=== PATIENT | female | born 1950 | race Caucasian/White ===

== ENCOUNTER 2024-04-07 08:48 | Outpatient (CLI) | payer MEDICARE, OTHER | END 2024-04-07 08:49 | disposition home or self-care (01) | LOC: RAD 08:48 | PROVIDERS: ATTEND Internal Medicine Critical Care Medicine | DX: R06.00 Dyspnea, unspecified (principal); I51.7 Cardiomegaly; J98.4 Other disorders of lung | CPT/HCPCS: 71046 ==

== ENCOUNTER 2024-05-23 06:43 | Inpatient (IN) | payer MEDICARE ==
[2024-05-23 08:32] LABS: #Basophils 0.05 10x3/uL (0.0-0.2); %Basophils 0.9 % (0.0-1.0); %Eosinophils 2.2 % (0.0-10.0); %Monocytes 10.5 % (0.0-10.0); Hematocrit 41.5 % (36.0-47.0); Hemoglobin 12.2 g/dL (12.0-16.0); Mean Corpuscular HGB CONC 29.4 g/dL (32.0-36.0); Mean Corpuscular Hemoglobin 23.8 pg (27.0-31.0); Mean Corpuscular Volume 81.1 fL (78.0-98.0); Mean Platelet Volume 10.2 fL (7.4-10.4); Platelet Count 323 10x3/uL (130-400); RBC Distribution Width 17.2 % (11.5-14.5); Red Blood Cell (RBC) Count 5.12 mill/uL (4.20-5.40)
[2024-05-23 08:37] LABS: Anion Gap 13 mmol/L (10-20); BUN (Urea Nitrogen) 14 mg/dL (9.8-20.1); Calc. Creatinine Clearance 0 mL/min (70-130); Calcium 8.6 mg/dL (7.8-10.44); Carbon Dioxide 23 mmol/L (23-31); Chloride 106 mmol/L (98-107); Estimated GFR 83; Glucose 125 mg/dL (83-110); Potassium 4.1 mmol/L (3.5-5.1); Sodium 138 mmol/L (136-145)
[2024-05-23 08:43] LABS: Troponin I 0.024 ng/mL (< 0.028)
[2024-05-23] MEDS ORDERED: Acetaminophen 325 MG TAB PO PRN (10:15)
[2024-05-23] MEDS ORDERED: Ondansetron PF 4 MG/2 ML Vial IVP PRN (10:15)
[2024-05-23] MEDS ORDERED: Ondansetron ODT 4 MG TAB SL PRN (10:15)
[2024-05-23] MEDS ORDERED: Nitroglycerin 0.4 MG TAB (25 Tab Bottle) SL PRN (10:18)
[2024-05-23 11:28] LABS: Cardiac Risk 3.2 (Less than 4.5)
[2024-05-23 11:33] LABS: Troponin I 0.024 ng/mL (< 0.028)
[2024-05-23] MEDS ORDERED: Sacubitril 49 MG/Valsartan 51 MG TABLET ONE (12:05)
[2024-05-23] MEDS ORDERED: Aspirin 325 mg Enteric Coated Tablet ONE (12:05)
[2024-05-23] MEDS: Aspirin 81 mg Enteric Coated Tablet PO SCH (12:08)
[2024-05-23] MEDS: Sacubitril 24MG/Valsartan 26 MG TAB PO SCH ×2 (13:21→20:16)
[2024-05-23] MEDS: Levothyroxine Sodium 25 MCG TAB PO SCH (20:16)
[2024-05-23] MEDS: Atorvastatin Calcium 20 MG TAB PO SCH (20:16)
[2024-05-23] MEDS: Amiodarone 200 MG TAB PO SCH (20:16)
[2024-05-23] MEDS: Enoxaparin 100 MG (1 mL) SYRINGE SC SCH (20:17)
[2024-05-23] MEDS: Dapagliflozin Propanediol 10 MG TAB PO SCH (20:50)
[2024-05-24 05:08] LABS: #Basophils 0.07 10x3/uL (0.0-0.2); %Eosinophils 2.5 % (0.0-10.0); %Lymphocytes 30.6 % (21.0-51.0); %Monocytes 10.9 % (0.0-10.0); %Neutrophils 54.7 % (42.0-75.0); Hematocrit 39.5 % (36.0-47.0); Hemoglobin 11.9 g/dL (12.0-16.0); Mean Corpuscular HGB CONC 30.1 g/dL (32.0-36.0); Mean Corpuscular Hemoglobin 24.2 pg (27.0-31.0); Mean Corpuscular Volume 80.3 fL (78.0-98.0); Mean Platelet Volume 10.2 fL (7.4-10.4); Platelet Count 312 10x3/uL (130-400); RBC Distribution Width 17.5 % (11.5-14.5); Red Blood Cell (RBC) Count 4.92 mill/uL (4.20-5.40)
[2024-05-24 05:38] LABS: Anion Gap 12 mmol/L (10-20); BUN (Urea Nitrogen) 11 mg/dL (9.8-20.1); Calc. Creatinine Clearance 0 mL/min (70-130); Calcium 8.2 mg/dL (7.8-10.44); Carbon Dioxide 24 mmol/L (23-31); Chloride 108 mmol/L (98-107); Estimated GFR 69; Glucose 107 mg/dL (83-110); Potassium 4.1 mmol/L (3.5-5.1); Sodium 140 mmol/L (136-145)
[2024-05-24] MEDS: Aspirin Chewable 81 MG TAB PO SCH (08:44)
[2024-05-26] MEDS: Acetaminophen 325 MG TAB PO PRN (05:41)
[2024-05-26] MEDS: Cephalexin 250 MG CAP PO SCH (15:28)
[2024-05-26] MEDS ORDERED: Communication Order-Pharmacy FS SCH (19:00)
[2024-05-27] MEDS: Sodium Chloride 0.9% 500 ML IV SCH (02:00)
[2024-05-27] MEDS ORDERED: fentaNYL 50 mcg/mL 1 mL Vial ONE (07:44)
[2024-05-27] MEDS ORDERED: Nitroglycerin 50 MG/250 ML BOT 0 ML ONE (07:45)
[2024-05-27] MEDS ORDERED: Midazolam HCl 2 mg/2 ml Vial ONE (07:45)
[2024-05-27] MEDS ORDERED: Heparin 10,000 UNITS/ 10 ML VIAL ONE (07:45)
[2024-05-27] MEDS ORDERED: Sodium Chloride 0.9% 200 ML IV PRN (08:55)
[2024-05-27] MEDS ORDERED: Acetaminophen/Codeine 30-300mg Tablet PO PRN (08:55)
[2024-05-27] MEDS: Sodium Chloride 0.9% 250 ML IV SCH (09:28)
[2024-05-27] MEDS ORDERED: Iopamidol 370 76% 100 ML VIAL ONE (11:01)
[2024-05-28 07:12] LABS: #Basophils 0.06 10x3/uL (0.0-0.2); %Eosinophils 2.7 % (0.0-10.0); %Lymphocytes 28.8 % (21.0-51.0); %Monocytes 11.9 % (0.0-10.0); %Neutrophils 55.3 % (42.0-75.0); Hematocrit 45.1 % (36.0-47.0); Hemoglobin 13.5 g/dL (12.0-16.0); Mean Corpuscular HGB CONC 29.9 g/dL (32.0-36.0); Mean Corpuscular Hemoglobin 24.2 pg (27.0-31.0); Mean Corpuscular Volume 80.8 fL (78.0-98.0); Mean Platelet Volume 10.7 fL (7.4-10.4); Platelet Count 311 10x3/uL (130-400); Red Blood Cell (RBC) Count 5.58 mill/uL (4.20-5.40)
[2024-05-28 07:27] LABS: Anion Gap 14 mmol/L (10-20); BUN (Urea Nitrogen) 14 mg/dL (9.8-20.1); Calc. Creatinine Clearance 80 mL/min (70-130); Calcium 8.8 mg/dL (7.8-10.44); Carbon Dioxide 22 mmol/L (23-31); Chloride 107 mmol/L (98-107); Estimated GFR 75; Glucose 107 mg/dL (83-110); Potassium 4.2 mmol/L (3.5-5.1); Sodium 139 mmol/L (136-145)
[2024-05-28 11:50] VITALS: BP 131/59; TEMP 98.3
[2024-05-29] MEDS ORDERED: Spironolactone 25 MG TAB PO SCH (08:00)
== END 2024-05-28 14:02 | disposition home or self-care (01) | DRG 287 ==
LOC: ERS 06:43 → ERHOLD 09:56 → OBSVTOIN 10:16 → OBS 13:09
PROVIDERS: ADMIT Family Medicine; ATTEND Internal Medicine
PROC: 4A023N7 Measurement of Cardiac Sampling and Pressure, Left Heart, Percutaneous Approach (ICD-10-PCS; principal; 2024-05-27)
PROC: B2111ZZ Fluoroscopy of Multiple Coronary Arteries using Low Osmolar Contrast (ICD-10-PCS; 2024-05-27)
PROC: B2151ZZ Fluoroscopy of Left Heart using Low Osmolar Contrast (ICD-10-PCS; 2024-05-27)
DX: I42.9 Cardiomyopathy, unspecified (principal); I50.22 Chronic systolic (congestive) heart failure; R07.89 Other chest pain; I48.0 Paroxysmal atrial fibrillation; Z79.82 Long term (current) use of aspirin; E03.9 Hypothyroidism, unspecified; Z98.890 Other specified postprocedural states; E11.9 Type 2 diabetes mellitus without complications; Z98.49 Cataract extraction status, unspecified eye; I11.0 Hypertensive heart disease with heart failure; E78.5 Hyperlipidemia, unspecified
CPT/HCPCS: 36415; 71045; 80048; 80061; 83880; 84443; 84484; 85025; 93306; 93458; 94760; 97139; 99152; C1769; C1887; J1644; J1650; J2250; J3010; Q9967

== ENCOUNTER 2024-06-13 18:48 | Inpatient (IN) | payer MEDICARE ==
[~2024-06-13 18:48] MED LIST: Iopamidol-370 76% 500 ML MDV (1 ML CHARGE) ONE
[2024-06-13] MEDS ORDERED: Ondansetron PF 4 MG/2 ML Vial ONE (19:38)
[2024-06-13 19:58] LABS: #Basophils 0.06 10x3/uL (0.0-0.2); %Basophils 0.6 % (0.0-1.0); %Eosinophils 0.7 % (0.0-10.0); %Lymphocytes 14.9 % (21.0-51.0); %Monocytes 7.4 % (0.0-10.0); %Neutrophils 76.2 % (42.0-75.0); Hematocrit 41.9 % (36.0-47.0); Hemoglobin 12.4 g/dL (12.0-16.0); Mean Corpuscular HGB CONC 29.6 g/dL (32.0-36.0); Mean Corpuscular Volume 81.2 fL (78.0-98.0); Mean Platelet Volume 10.4 fL (7.4-10.4); Platelet Count 370 10x3/uL (130-400); RBC Distribution Width 18.6 % (11.5-14.5); Red Blood Cell (RBC) Count 5.16 mill/uL (4.20-5.40)
[2024-06-13 20:14] LABS: ALT (SGPT) 25 U/L (8-55); AST (SGOT) 26 U/L (5-34); Albumin 3.9 g/dL (3.4-4.8); Alkaline Phosphatase 76 U/L (40-110); Anion Gap 15 mmol/L (10-20); BUN (Urea Nitrogen) 20 mg/dL (9.8-20.1); Bilirubin, Total 0.7 mg/dL (0.2-1.2); Calc. Creatinine Clearance 0 mL/min (70-130); Calcium 9.3 mg/dL (7.8-10.44); Carbon Dioxide 22 mmol/L (23-31); Chloride 107 mmol/L (98-107); Estimated GFR 67; Globulin 3.9 g/dL (2.4-3.5); Glucose 199 mg/dL (83-110); Lipase 45 U/L (8-78); Potassium 3.9 mmol/L (3.5-5.1); Protein, Total 7.8 g/dL (5.8-8.1); Sodium 140 mmol/L (136-145)
[2024-06-13 20:18] LABS: Troponin I Less than 0.010 ng/mL (< 0.028)
[2024-06-13] MEDS ORDERED: Famotidine/PF 20 mg/2ml Vial ONE (20:21)
[2024-06-13] MEDS ORDERED: Ipratropium/Albuterol 3 ML NEB NEB PRN (21:48)
[2024-06-13] MEDS ORDERED: HYDROmorphone 0.5 MG/0.5 ML SYRINGE ONE (21:57)
[2024-06-13 23:23] VITALS: BMI 32.5
[2024-06-13] MEDS: Acetaminophen 325 MG TAB PO SCH (23:55)
[2024-06-13] MEDS: Lactated Ringer's 1,000 ML IV SCH (23:56)
[2024-06-14] MEDS: Morphine 2 MG/ML VIAL SLOW IVP PRN (01:27)
[2024-06-14 05:54] LABS: #Basophils 0.03 10x3/uL (0.0-0.2); #Eosinophils Less than 0.03 10x3/uL (0.0-0.7); %Basophils 0.2 % (0.0-1.0); %Eosinophils 0.1 % (0.0-10.0); %Lymphocytes 4.1 % (21.0-51.0); %Monocytes 5.7 % (0.0-10.0); %Neutrophils 89.4 % (42.0-75.0); Hematocrit 38.3 % (36.0-47.0); Hemoglobin 11.4 g/dL (12.0-16.0); Mean Corpuscular HGB CONC 29.8 g/dL (32.0-36.0); Mean Corpuscular Hemoglobin 23.9 pg (27.0-31.0); Mean Corpuscular Volume 80.5 fL (78.0-98.0); Mean Platelet Volume 9.9 fL (7.4-10.4); Platelet Count 306 10x3/uL (130-400); RBC Distribution Width 18.6 % (11.5-14.5); Red Blood Cell (RBC) Count 4.76 mill/uL (4.20-5.40)
[2024-06-14 06:04] LABS: INR-International Normal Ratio 1.7; PTT 35.1 sec (22.9-36.1); Prothrombin Time 20.3 sec (12.0-14.7)
[2024-06-14 06:06] LABS: ALT (SGPT) 18 U/L (8-55); AST (SGOT) 19 U/L (5-34); Albumin 3.1 g/dL (3.4-4.8); Alkaline Phosphatase 57 U/L (40-110); Anion Gap 14 mmol/L (10-20); BUN (Urea Nitrogen) 15 mg/dL (9.8-20.1); Bilirubin, Direct 0.4 mg/dL (0.1-0.3); Calc. Creatinine Clearance 83 mL/min (70-130); Calcium 8.5 mg/dL (7.8-10.44); Carbon Dioxide 21 mmol/L (23-31); Chloride 108 mmol/L (98-107); Estimated GFR 78; Glucose 145 mg/dL (83-110); Potassium 4.3 mmol/L (3.5-5.1); Protein, Total 6.1 g/dL (5.8-8.1); Sodium 139 mmol/L (136-145)
[2024-06-14] MEDS: Ondansetron ODT 4 MG TAB PO PRN (09:13)
[2024-06-14] MEDS: Piperacillin/Tazobactam 3.375 GM in Sodium Chloride 0.9% 100 ML IVPB SCH ×2 (09:15→10:05)
[2024-06-14] MEDS: Spironolactone 25 MG TAB PO SCH (09:15)
[2024-06-14] MEDS: traMADol HCl 50 MG TAB PO PRN (10:05)
[2024-06-14] MEDS ORDERED: Ondansetron PF 4 MG/2 ML Vial IVP PRN (10:24)
[2024-06-14] MEDS: Levothyroxine Sodium 25 MCG TAB PO SCH (21:16)
[2024-06-14] MEDS: Amiodarone 200 MG TAB PO SCH (21:16)
[2024-06-14] MEDS: Atorvastatin Calcium 20 MG TAB PO SCH (21:16)
[2024-06-15] MEDS ORDERED: EPINEPHrine 1 MG/ML VIAL ONE (10:09)
[2024-06-15] MEDS ORDERED: Bupivacaine 0.25% HCL 30 ML VIAL ONE (10:09)
[2024-06-15] MEDS ORDERED: fentaNYL PF 100 MCG/2 ML SYRINGE ONE ×2 (10:17→12:09)
[2024-06-15] MEDS ORDERED: PROPOFOL 40 ML ONE (10:17)
[2024-06-15] MEDS ORDERED: Ketamine In 0.9 % NaCl 50 MG/5 ML SYRINGE ONE (10:31)
[2024-06-15] MEDS ORDERED: Albumin 5% 250 ML ONE (10:31)
[2024-06-15] MEDS ORDERED: Rocuronium Bromide 10 MG/ML (10ML VIAL) ONE (10:40)
[2024-06-15] MEDS ORDERED: Dexamethasone 20 MG/5 ML VIAL ONE (10:40)
[2024-06-15] MEDS ORDERED: HYDROmorphone 2 MG/ML VIAL SLOW IVP PRN (10:58)
[2024-06-15] MEDS ORDERED: Morphine Sulfate 2 MG/ML SYRINGE SLOW IVP PRN (10:58)
[2024-06-15] MEDS ORDERED: Promethazine HCl 25 MG/ML VIAL IM PRN (10:58)
[2024-06-15] MEDS ORDERED: Ondansetron HCl/PF 4 MG/2 ML Vial IVP PRN (10:58)
[2024-06-15] MEDS ORDERED: SUGAMMADEX SODIUM 200 MG/2 ML VIAL ONE (11:19)
[2024-06-15] MEDS ORDERED: Lidocaine 2% PF 5 ML VIAL ONE (11:19)
[2024-06-15] MEDS ORDERED: fentaNYL 50 mcg/mL 1 mL Vial ONE (11:21)
[2024-06-15] MEDS ORDERED: Ondansetron PF 4 MG/2 ML Vial ONE (11:37)
[2024-06-15] MEDS ORDERED: PHENYLEPHRINE-NS 100 MCG/ML 10 ML SYRINGE ONE (11:47)
[2024-06-15] MEDS ORDERED: Sacubitril 24MG/Valsartan 26 MG TAB PO SCH (21:00)
[2024-06-15] MEDS: Sacubitril 24MG/Valsartan 26 MG TAB PO SCH (21:12)
[2024-06-17] MEDS ORDERED: traMADol HCl 50 MG TAB PO PRN (06:27)
[2024-06-17] MEDS: Enoxaparin 40 MG (0.4 mL) SYRINGE SC SCH (08:26)
[2024-06-17 08:27] VITALS: BP 98/53; TEMP 98
[2024-06-17] MEDS: Acetaminophen 500 MG TAB PO SCH (08:27)
[2024-06-17] MEDS: Amoxicillin/Potassium Clav 500 MG TAB PO SCH (08:33)
== END 2024-06-17 16:28 | disposition home or self-care (01) | DRG 418 ==
LOC: ERS 18:48 → T4-A 21:48 → IMCU/EMU 23:14
PROVIDERS: ADMIT Student in an Organized Health Care Education/Training Program; ATTEND Student in an Organized Health Care Education/Training Program
PROC: 0FT44ZZ Resection of Gallbladder, Percutaneous Endoscopic Approach (ICD-10-PCS; principal; 2024-06-16)
DX: K81.0 Acute cholecystitis (principal); I42.9 Cardiomyopathy, unspecified; E78.5 Hyperlipidemia, unspecified; I48.91 Unspecified atrial fibrillation; I11.0 Hypertensive heart disease with heart failure; K82.A1 Gangrene of gallbladder in cholecystitis; J44.9 Chronic obstructive pulmonary disease, unspecified; Z88.2 Allergy status to sulfonamides; Z79.82 Long term (current) use of aspirin; Z79.899 Other long term (current) drug therapy
CPT/HCPCS: 36415; 74177; 76705; 80048; 80053; 80076; 83690; 84484; 85025; 85610; 85730; 88304; 93005; 96361; 96374; 96375; C1889; J0171; J0665; J1100; J1650; J2272; J2405; J2543; J2704; J3010; J3490; J7120; P9045; Q0162; Q9967

== ENCOUNTER 2024-07-04 10:42 | Outpatient (CLI) | payer MEDICARE | END 2024-07-04 10:43 | disposition home or self-care (01) | LOC: RAD 10:42 | PROVIDERS: ATTEND Internal Medicine Critical Care Medicine | DX: R06.00 Dyspnea, unspecified (principal); I51.7 Cardiomegaly | CPT/HCPCS: 71046 ==